=== PATIENT | female | born 1945 | race Caucasian/White ===

== ENCOUNTER → 2017-08-14 | Outpatient (CLI) | payer MEDICARE, OTHER ==
--- NOTE | 2017-08-14 14:33 | US ---
EXAMINATION TYPE: US abdomen complete DATE OF EXAM: 08/14/2017 COMPARISON: NONE CLINICAL HISTORY: Vomiting R11.10. V and D for 12 hours after eating a meal, h/o colon resection EXAM MEASUREMENTS: Liver Length: 15.1 cm Gallbladder Wall: 0.1 cm CBD: 0.4 cm Spleen: 9.9 cm Right Kidney: 9.4 x 3.6 x 4.0 cm Left Kidney: 9.0 x 3.6 x 3.9 cm Pancreas: not seen due to bowel gas Liver: wnl Gallbladder: wnl Evidence for sonographic Rivera's sign: no CBD: wnl Spleen: wnl Right Kidney: wnl Left Kidney: 1.4cm simple appearing cyst within mid pole Upper IVC: wnl Abd Aorta: overlying bowel gas limits imaging, otherwise appears wnl The liver is homogenous. The intrahepatic portion of the IVC and proximal abdominal aorta are within normal limits. There is no evidence of cholelithiasis. Common bile duct is unremarkable. The visu alized portions of the pancreas are homogenous. The spleen is unremarkable. Kidneys are symmetric a nd free of hydronephrosis. IMPRESSION: 1. No sonographic evidence of acute cholecystitis or cholelithiasis. 2. 1.4 cm simple left midpole renal cyst.
== END | disposition home or self-care (01) ==
LOC: RADUSWWP 13:48
PROVIDERS: ATTEND Internal Medicine
DX: N28.1 Cyst of kidney, acquired (principal); R11.10 Vomiting, unspecified
CPT/HCPCS: 76700

== ENCOUNTER → 2019-06-03 | Outpatient (CLI) | payer MEDICARE, OTHER ==
--- NOTE | 2019-06-03 15:00 | XR ---
EXAMINATION TYPE: XR chest 2V DATE OF EXAM: 06/03/2019 COMPARISON: Prior chest x-ray 07/26/2015 HISTORY: Cough TECHNIQUE: Frontal and lateral views of the chest are obtained. FINDINGS: There is no focal air space opacity, pleural effusion, or pneumothorax seen. The cardiac silhouette size is within normal limits. The osseous structures are intact. Prominent lung volumes with flattening of hemidiaphragms suggest underlying COPD. Anterior wedging of a vertebral body near the thoracolumbar junction, lumbar spine is a stable finding. Aorta is dense, there are vascular calc ifications in the super aortic branch vessel. Prominent epicardial fat pads noted. There is a spinal curvature. IMPRESSION: No acute cardiopulmonary process.
== END | disposition home or self-care (01) ==
LOC: RADXRMAIN 13:11
PROVIDERS: ATTEND Internal Medicine
DX: R05 Cough (principal)
CPT/HCPCS: 71046

== ENCOUNTER 2020-06-17 12:37 | Observation (INO) | payer MEDICARE, OTHER ==
--- NOTE | 2020-06-17 13:05 | ED ---
General Adult HPI - General Chief complaint: Shortness of Breath Stated complaint: Shortness of Breath Time Seen by Provider: 06/17/20 12:43 Source: patient Mode of arrival: wheelchair Limitations: no limitations - History of Present Illness Initial comments: Dictation was produced using View[employer] dictation software. please excuse any grammatical, word or spelling errors. This patient was cared for during a federal and state declared [facility] secondary to Covid 19 Chief Complaint: 75-year-old feel past medical history of COPD, hypertension, arthritis presents with dysphagia and productive cough History of Present Illness: 75-year-old female she states she's been having productive cough the week before things giving. She did see her primary care physician who prescribed her Augmentin. Patient states that antibiotics and really improve her symptoms. She was tested for coronavirus at that time was negative. Patient also brought to her primary care physician's attention that she is having trouble swallowing. Patient reports that she feels as though her piece. He ignored her symptoms. Patient has any fever, chills or night sweats. She does not feel faint. She states that her cough is productive of clear wh ite sputum. Patient does have history of COPD she does have a nebulizer. She states that her symptoms have been lingering prompt her to come to the emergency department. She decided to be evaluated. Patient denies any pain complaints. Denies any swelling in her legs. She denies that her symptoms are worse with lying flat. While in the emergency department she actually reports feeling better than while at home. The ROS documented in this emergency department record has been reviewed and confirmed by me. Those systems with pertinent positive or negative responses have been documented in the HPI. All other systems are other negative and/or noncontributory. PHYSICAL EXAM: General Impression: Alert and oriented x3, not in acute distress HEENT: Normocephalic atraumatic, extra-ocular movements intact, pupils equal and reactive to light bilaterally, mucous membranes moist. Cardiovascular: Heart regular rate and rhythm Chest: Able to complete full sentences, no retractions, no tachypnea, mild rales worse on the left than the right Abdomen: abdomen soft, non-tender, non-distended, no organomegaly Musculoskeletal: Pulses present and equal in all extremities, no peripheral edema Motor: no focal deficits noted Neurological: CN II-XII grossly intact, no focal motor or sensory deficits noted Skin: Intact with no visualized rashes Psych: Normal affect and mood ED course: 75-year-old female presents to the emergency department for productive cough, mild dyspnea and dysphagia. Vital signs upon arrival are within acceptable limits. EKG interpretation: Ventricular rate C2, normal sinus rhythm, ME interval 146, QRS 76, QTC 422. No ME prolongation, no QTC prolongation, no ST or T-wave changes noted. Overall, this EKG is unremarkable Laboratory evaluation obtained. CBC unremarkable. Coag panel is negative. Metabolic panel shows magnesium 1.5. Patient given oral magnesium. Rest of labs are unremarkable. Coronal virus test is negative. Chest x-ray shows focal opacity at the right lung base unchanged suggest a chronic process otherwise no acute processes. CT scans shows large right pericardial fat pad accounting for the density seen on the chest x-ray. No other processes noted. Patient tolerating fluids. She however was challenged with a sandwich. She is unable to tolerate solid food. Considering patient's severe dysphagia we'll have patient admitted with consultation to gastroenterology. will be admitted to [facility]. - Related Data Home Medications Medication Instructions Recorded Confirmed ALPRAZolam [Xanax] 0.25 mg PO TID PRN 07/27/14 06/17/20 Esomeprazole Magnesium [NexIUM] 40 mg PO DAILY 07/27/14 06/17/20 Furosemide [Lasix] 20 mg PO MOWEFR 07/27/14 06/17/20 Metoprolol Succinate [Toprol XL] 50 mg PO HS 07/27/14 06/17/20 Montelukast [Singulair] 10 mg PO HS 07/27/14 06/17/20 Nitroglycerin Sl Tabs [Nitrostat] 0.4 mg SUBLINGUAL ONCE PRN 07/27/14 06/17/20 Oxybutynin Xl [Ditropan XL] 5 mg PO DAILY 07/27/14 06/17/20 Simvastatin [Zocor] 40 mg PO HS 07/27/14 06/17/20 Acetaminophen [Tylenol] 500 mg PO Q4-6H PRN 06/17/20 06/17/20 Albuterol Inhaler [Ventolin Hfa 2 puff INHALATION RT-Q4H PRN 06/17/20 06/17/20 Inhaler] Albuterol Nebulized [Ventolin 2.5 mg INHALATION RT-DAILY 06/17/20 06/17/20 Nebulized] Arformoterol Tartrate [Brovana] 15 mcg INHALATION RT-BID 06/17/20 06/17/20 Ascorbic Acid [Vitamin C] 500 mg PO DAILY 06/17/20 06/17/20 Budesonide [Pulmicort] 0.25 mg INHALATION RT-BID 06/17/20 06/17/20 Cholecalciferol [Vitamin D3 (25 1,000 unit PO DAILY 06/17/20 06/17/20 Mcg = 1000 Iu)] Multivitamins, Thera [Multivitamin 1 tab PO DAILY 06/17/20 06/17/20 (formulary)] Allergies Allergy/AdvReac Type Severity Reaction Status Date / Time aspirin AdvReac Unknown Verified 06/17/20 13:40 codeine AdvReac Itching Verified 06/17/20 13:40 Sulfa (Sulfonamide AdvReac Itching Verified 06/17/20 13:40 Antibiotics) Review of Systems ROS Statement: Those systems with pertinent positive or pertinent negative responses have been documented in the HPI. ROS Other: All systems not noted in ROS Statement are negative. Past Medical History Past Medical History: Coronary Artery Disease (CAD), COPD, GERD/Reflux, Hyperlipidemia, Hypertension, Neurologic Disorder, Renal Disease, Rheumatoid Arthritis (RA) Additional Past Medical History / Comment(s): chronic cystitis;nerve damage r/t rosales. disc;diverticulitis; History of Any Multi-Drug Resistant Organisms: None Reported Past Surgical History: Bladder Surgery, Bowel Resection, Hysterectomy Additional Past Surgical History / Comment(s): colonoscopy Past Anesthesia/Blood Transfusion Reactions: No Reported Reaction Past Psychological History: Anxiety Past Alcohol Use History: Occasional Past Drug Use History: None Reported - Past Family History Brother(s) Family Medical History: Cancer General Exam Limitations: no limitations Course Vital Signs 06/17/20 06/17/20 12:47 14:40 Temperature 98.3 F Pulse Rate 69 64 Respiratory 18 18 Rate Blood Pressure 153/78 170/91 O2 Sat by Pulse 98 98 Oximetry Medical Decision Making - Lab Data Result diagrams: 06/17/20 13:06 06/17/20 13:06 Lab Results 06/17/20 06/17/20 06/17/20 Range/Units 13:06 13:06 13:06 WBC 9.1 (3.8-10.6) k/uL RBC 4.65 (3.80-5.40) m/uL Hgb 14.9 (11.4-16.0) gm/dL Hct 44.3 (34.0-46.0) % MCV 95.2 (80.0-100.0) fL MCH 32.1 (25.0-35.0) pg MCHC 33.7 (31.0-37.0) g/dL RDW 12.1 (11.5-15.5) % Plt Count 228 (150-450) k/uL MPV 7.3 Neutrophils % 63 % Lymphocytes % 29 % Monocytes % 5 % Eosinophils % 1 % Basophils % 0 % Neutrophils # 5.7 (1.3-7.7) k/uL Lymphocytes # 2.6 (1.0-4.8) k/uL Monocytes # 0.4 (0-1.0) k/uL Eosinophils # 0.1 (0-0.7) k/uL Basophils # 0.0 (0-0.2) k/uL PT 11.4 (9.0-12.0) sec INR 1.1 (<1.2) APTT 26.1 (22.0-30.0) sec Sodium 138 (137-145) mmol/L Potassium 4.5 (3.5-5.1) mmol/L Chloride 104 (98-107) mmol/L Carbon Dioxide 25 (22-30) mmol/L Anion Gap 9 mmol/L BUN 11 (7-17) mg/dL Creatinine 0.93 (0.52-1.04) mg/dL Est GFR (CKD-EPI)AfAm 71 (>60 ml/min/1.73 sqM) Est GFR (CKD-EPI)NonAf 61 (>60 ml/min/1.73 sqM) Glucose 104 H (74-99) mg/dL Plasma Lactic Acid Kyle (0.7-2.0) mmol/L Calcium 9.0 (8.4-10.2) mg/dL Magnesium 1.5 L (1.6-2.3) mg/dL Total Bilirubin 0.6 (0.2-1.3) mg/dL AST 23 (14-36) U/L ALT 17 (4-34) U/L Alkaline Phosphatase 69 (38-126) U/L Troponin I (0.000-0.034) ng/mL NT-Pro-B Natriuret Pep pg/mL Total Protein 6.7 (6.3-8.2) g/dL Albumin 4.3 (3.5-5.0) g/dL Coronavirus (PCR) (Not Detectd) 06/17/20 06/17/20 06/17/20 Range/Units 13:06 13:06 13:06 WBC (3.8-10.6) k/uL RBC (3.80-5.40) m/uL Hgb (11.4-16.0) gm/dL Hct (34.0-46.0) % MCV (80.0-100.0) fL MCH (25.0-35.0) pg MCHC (31.0-37.0) g/dL RDW (11.5-15.5) % Plt Count (150-450) k/uL MPV Neutrophils % % Lymphocytes % % Monocytes % % Eosinophils % % Basophils % % Neutrophils # (1.3-7.7) k/uL Lymphocytes # (1.0-4.8) k/uL Monocytes # (0-1.0) k/uL Eosinophils # (0-0.7) k/uL Basophils # (0-0.2) k/uL PT (9.0-12.0) sec INR (<1.2) APTT (22.0-30.0) sec Sodium (137-145) mmol/L Potassium (3.5-5.1) mmol/L Chloride (98-107) mmol/L Carbon Dioxide (22-30) mmol/L Anion Gap mmol/L BUN (7-17) mg/dL Creatinine (0.52-1.04) mg/dL Est GFR (CKD-EPI)AfAm (>60 ml/min/1.73 sqM) Est GFR (CKD-EPI)NonAf (>60 ml/min/1.73 sqM) Glucose (74-99) mg/dL Plasma Lactic Acid Kyle 2.0 (0.7-2.0) mmol/L Calcium (8.4-10.2) mg/dL Magnesium (1.6-2.3) mg/dL Total Bilirubin (0.2-1.3) mg/dL AST (14-36) U/L ALT (4-34) U/L Alkaline Phosphatase (38-126) U/L Troponin I <0.012 (0.000-0.034) ng/mL NT-Pro-B Natriuret Pep 406 pg/mL Total Protein (6.3-8.2) g/dL Albumin (3.5-5.0) g/dL Coronavirus (PCR) (Not Detectd) 06/17/20 Range/Units 13:06 WBC (3.8-10.6) k/uL RBC (3.80-5.40) m/uL Hgb (11.4-16.0) gm/dL Hct (34.0-46.0) % MCV (80.0-100.0) fL MCH (25.0-35.0) pg MCHC (31.0-37.0) g/dL RDW (11.5-15.5) % Plt Count (150-450) k/uL MPV Neutrophils % % Lymphocytes % % Monocytes % % Eosinophils % % Basophils % % Neutrophils # (1.3-7.7) k/uL Lymphocytes # (1.0-4.8) k/uL Monocytes # (0-1.0) k/uL Eosinophils # (0-0.7) k/uL Basophils # (0-0.2) k/uL PT (9.0-12.0) sec INR (<1.2) APTT (22.0-30.0) sec Sodium (137-145) mmol/L Potassium (3.5-5.1) mmol/L Chloride (98-107) mmol/L Carbon Dioxide (22-30) mmol/L Anion Gap mmol/L BUN (7-17) mg/dL Creatinine (0.52-1.04) mg/dL Est GFR (CKD-EPI)AfAm (>60 ml/min/1.73 sqM) Est GFR (CKD-EPI)NonAf (>60 ml/min/1.73 sqM) Glucose (74-99) mg/dL Plasma Lactic Acid Kyle (0.7-2.0) mmol/L Calcium (8.4-10.2) mg/dL Magnesium (1.6-2.3) mg/dL Total Bilirubin (0.2-1.3) mg/dL AST (14-36) U/L ALT (4-34) U/L Alkaline Phosphatase (38-126) U/L Troponin I (0.000-0.034) ng/mL NT-Pro-B Natriuret Pep pg/mL Total Protein (6.3-8.2) g/dL Albumin (3.5-5.0) g/dL Coronavirus (PCR) Not Detected (Not Detectd) Disposition Clinical Impression: Dysphagia Disposition: ADMITTED IP TO THIS HOSP Condition: Fair Referrals: Alexx Gutiérrez MD [Primary Care Provider] - 1-2 days Decision Time: 15:05
[2020-06-17 13:18] LABS: Basophils % (A) 0 %; Eosinophils # (A) 0.1 k/uL (0-0.7); Eosinophils % (A) 1 %; HCT 44.3 % (34.0-46.0); HGB 14.9 gm/dL (11.4-16.0); Lymphocytes # (A) 2.6 k/uL (1.0-4.8); Lymphocytes % (A) 29 %; MCH 32.1 pg (25.0-35.0); MCHC 33.7 g/dL (31.0-37.0); MCV 95.2 fL (80.0-100.0); Mean Platelet Volume 7.3; Monocytes # (A) 0.4 k/uL (0-1.0); Monocytes % (A) 5 %; Neutrophils # (A) 5.7 k/uL (1.3-7.7); Neutrophils % (A) 63 %; Platelet Count 228 k/uL (150-450); RBC 4.65 m/uL (3.80-5.40); RDW 12.1 % (11.5-15.5); WBC 9.1 k/uL (3.8-10.6)
[2020-06-17 13:28] LABS: Albumin 4.3 g/dL (3.5-5.0); INR 1.1 (<1.2); Magnesium 1.5 mg/dL (1.6-2.3); Partial Thromboplastin Time 26.1 sec (22.0-30.0); Potassium 4.5 mmol/L (3.5-5.1); Prothrombin Time 11.4 sec (9.0-12.0); Total Bilirubin 0.6 mg/dL (0.2-1.3); Total Protein 6.7 g/dL (6.3-8.2)
--- NOTE | 2020-06-17 13:29 | XR ---
EXAMINATION TYPE: XR chest 2V DATE OF EXAM: 06/17/2020 COMPARISON: 06/03/2019 HISTORY: 75-year-old female with cough TECHNIQUE: PA and lateral views FINDINGS: The cardiomediastinal silhouette, aorta, and pulmonary vasculature are within normal limits. Stable f ocal opacity along the right cardiophrenic angle. This appears unchanged from the patient's study las t year. Mild hyperinflation. No consolidation or pleural effusion otherwise seen. Stable mild anterio r wedging at the thoracolumbar junction. IMPRESSION: 1. Focal opacity at the medial right base is unchanged suggesting a chronic process such as underlyin g Morgagni, pericardiac cyst, or large epicardial fat pad. Nonemergent follow-up contrast enhanced CT recommended to clarify the etiology of this finding. 2. Otherwise, no acute change is seen.
[2020-06-17] MEDS ORDERED: MAGNESIUM OXIDE 400 MG TAB PO STA (13:53)
[2020-06-17] MEDS ORDERED: RX INFO: IV CONTRAST WAS GIVEN 1 EACH MISC MISCELLANE PRN (13:55)
--- NOTE | 2020-06-17 14:50 | CT ---
EXAMINATION TYPE: CT chest w con DATE OF EXAM: 06/17/2020 COMPARISON: Today HISTORY: Right lung mass. CT DLP: 372.1 mGycm Automated exposure control for dose reduction was used. CONTRAST: Performed with IV Contrast, patient injected with 100 mL of Isovue 300. Images were obtained from the thoracic inlet to the diaphragm with IV contrast. There is diffuse pulmonary emphysema. Thoracic aorta shows mild atheromatous change. Ascending aorta measures 3.7 cm. There is no dissection. There is no mediastinal adenopathy. There are no hilar noni s. There is no pleural effusion. There is hiatal hernia. There is prominent right pericardial fat pad. The thoracic spine is intact. There is no compression fracture. There is L2 20% anterior wedging ther e is probably an old fracture. IMPRESSION: Large right pericardial fat pad that accounts for increased density on the chest x-ray today. Hiatal hernia. Emphysema. No evidence of acute lung disease.
[2020-06-17] MEDS ORDERED: NALOXONE 0.4 MG/ML 1 ML VIAL IV PRN (15:03)
[2020-06-17] MEDS: SODIUM CHLORIDE 0.9% 1,000 ML IV SCH (15:51)
[2020-06-17] MEDS ORDERED: ACETAMINOPHEN TAB 500 MG TAB PO PRN (20:23)
[2020-06-17] MEDS ORDERED: ALPRAZolam 0.25 MG TAB PO PRN (20:23)
[2020-06-17] MEDS ORDERED: ALBUTEROL NEBULIZED 2.5 MG/3 ML INHALATION PRN (20:23)
[2020-06-17] MEDS ORDERED: NITROGLYCERIN SL TABS 0.4 MG TAB SUBLINGUAL PRN (20:23)
[2020-06-17] MEDS: MONTELUKAST 10 MG TAB PO SCH (21:03)
[2020-06-17] MEDS: ATORVASTATIN 20 MG TAB PO SCH (21:03)
[2020-06-18] MEDS: METOPROLOL SUCCINATE (ER) 50 MG TAB.ER.24H PO SCH ×2 (02:54→21:34)
[2020-06-18] MEDS: SODIUM CHLORIDE 0.9% 1,000 ML IV SCH ×2 (06:38→21:35)
[2020-06-18] MEDS: BUDESONIDE 0.25 MG/2 ML NEBU INHALATION SCH ×2 (07:22→19:18)
[2020-06-18] MEDS: FORMOTEROL FUMARATE 20 MCG/2 ML NEBU INHALATION SCH ×2 (07:22→19:18)
[2020-06-18] MEDS: ALBUTEROL NEBULIZED 2.5 MG/3 ML INHALATION SCH (07:22)
--- NOTE | 2020-06-18 08:08 | P.HPIM ---
History of Present Illness This is a pleasant 75 years old female with past medical history of coronary artery disease, COPD, GERD, hypertension, hyperlipidemia, rheumatoid arthritis. She is a patient of Dr. Gutiérrez. She presents because of difficulty swallowing especially for solid food rather than liquids since earlier this month and is about 3-4 weeks, also she had some sore throat, nasal congestion and sinusitis she went to her PCP who prescribed her antibiotic and she felt better however she kept having difficulty swallowing but her PCP did not help her much as per patient so she got some respiratory difficulty and stridor so she decided to come to the hospital. Also she feels choking with food and vomiting stuff. No lump in her neck Currently she is fully awake and oriented, she breathing quietly, no respiratory difficulty, no stridor, no wheezing, no tachypnea. However she still complaining of from dysphagia that's why she got admitted by emergency room physician to be evaluated by GI team. Also denies other symptoms, no abdominal pain or diarrhea. No chest pain or dyspnea. No fever Labs showing bradycardia with heart rate 50-58. Blood pressure 162/71, patient is afebrile. And she saturating 98% on room air Labs including CBC, INR, BMP and liver enzymes are unremarkable. Troponin is negative. Less than 0.012. Magnesium is low at 1.5. And almonte virus was not detected Chest x-ray showing no acute process. Staple focal opacity along the right cardiophrenic angle. CT of the chest is recommended by radiologist CT of the chest with contrast showing large right pericardial fat pad that accounts for increased density on the chest x-ray today. Hiatal hernia. Emphysema. No evidence of acute lung disease. EKG showed normal sinus rhythm. At 62 beats per minute Emergency room patient was kept on clear liquid diet and admitted, with consult for GI team Review of Systems CONSTITUTIONAL: No fever, no malaise, no fatigue. HEENT: No recent visual problems or hearing problems. Denied any sore throat. CARDIOVASCULAR: No orthopnea, PND, no palpitations, no syncope. PULMONARY: No shortness of breath, no cough, no hemoptysis. GASTROINTESTINAL: No diarrhea, no nausea, no abdominal pain. Normoactive bowel sounds. NEUROLOGICAL: No headaches, no weakness, no numbness. HEMATOLOGICAL: Denies any bleeding or petechiae. GENITOURINARY: Denies any burning micturition, frequency, or urgency. MUSCULOSKELETAL/RHEUMATOLOGICAL: Denies any joint pain, swelling, or any muscle pain. ENDOCRINE: Denies any polyuria or polydipsia. this is a pleasant 75 yo F with past medical history of COPD ,GERD, coronary artery disease, hypertension, hyperlipidemia, rheumatoid arthritis, anxiety. She is patient of Dr. Gutiérrez. Past Medical History Past Medical History: Coronary Artery Disease (CAD), COPD, GERD/Reflux, Hyperlipidemia, Hypertension, Neurologic Disorder, Renal Disease, Rheumatoid Arthritis (RA) Additional Past Medical History / Comment(s): chronic cystitis;nerve damage r/t rosales. disc;diverticulitis; History of Any Multi-Drug Resistant Organisms: None Reported Past Surgical History: Bladder Surgery, Bowel Resection, Hysterectomy Additional Past Surgical History / Comment(s): colonoscopy, breast biopsy x2 benign, Past Anesthesia/Blood Transfusion Reactions: No Reported Reaction Past Psychological History: Anxiety Smoking Status: Former smoker Past Alcohol Use History: Occasional Additional Past Alcohol Use History / Comment(s): former drinker Past Drug Use History: None Reported - Past Family History Brother(s) Family Medical History: Cancer Medications and Allergies Home Medications Medication Instructions Recorded Confirmed Type ALPRAZolam [Xanax] 0.25 mg PO TID PRN 07/27/14 06/17/20 History Esomeprazole Magnesium [NexIUM] 40 mg PO DAILY 07/27/14 06/17/20 History Furosemide [Lasix] 20 mg PO MOWEFR 07/27/14 06/17/20 History Metoprolol Succinate [Toprol XL] 50 mg PO HS 07/27/14 06/17/20 History Montelukast [Singulair] 10 mg PO HS 07/27/14 06/17/20 History Nitroglycerin Sl Tabs [Nitrostat] 0.4 mg SUBLINGUAL ONCE PRN 07/27/14 06/17/20 History Oxybutynin Xl [Ditropan XL] 5 mg PO DAILY 07/27/14 06/17/20 History Simvastatin [Zocor] 40 mg PO HS 07/27/14 06/17/20 History Acetaminophen [Tylenol] 500 mg PO Q4-6H PRN 06/17/20 06/17/20 History Albuterol Inhaler [Ventolin Hfa 2 puff INHALATION RT-Q4H PRN 06/17/20 06/17/20 History Inhaler] Albuterol Nebulized [Ventolin 2.5 mg INHALATION RT-DAILY 06/17/20 06/17/20 History Nebulized] Arformoterol Tartrate [Brovana] 15 mcg INHALATION RT-BID 06/17/20 06/17/20 History Ascorbic Acid [Vitamin C] 500 mg PO DAILY 06/17/20 06/17/20 History Budesonide [Pulmicort] 0.25 mg INHALATION RT-BID 06/17/20 06/17/20 History Cholecalciferol [Vitamin D3 (25 1,000 unit PO DAILY 06/17/20 06/17/20 History Mcg = 1000 Iu)] Multivitamins, Thera [Multivitamin 1 tab PO DAILY 06/17/20 06/17/20 History (formulary)] Allergies Allergy/AdvReac Type Severity Reaction Status Date / Time aspirin AdvReac Unknown Verified 06/17/20 13:40 codeine AdvReac Itching Verified 06/17/20 13:40 Sulfa (Sulfonamide AdvReac Itching Verified 06/17/20 13:40 Antibiotics) Physical Exam Vitals: Vital Signs Temp Pulse Pulse Resp BP BP Pulse Ox 06/18/20 02:54 97.8 F 50 L 19 162/71 96 06/18/20 02:53 50 L 19 06/17/20 21:00 97.9 F 53 L 17 154/81 98 06/17/20 17:33 58 L 20 192/70 98 06/17/20 17:15 98.3 F 65 18 127/104 98 06/17/20 15:40 58 L 19 163/70 97 06/17/20 14:40 64 18 170/91 98 06/17/20 12:47 98.3 F 69 18 153/78 98 Intake and Output 06/17/20 06/18/20 06/18/20 22:59 06:59 14:59 Intake Total 120 240 Balance 120 240 Intake: Oral 120 240 Other: Voiding Method Toilet Toilet # Voids 1 2 Weight 68.946 kg GENERAL: The patient is alert and oriented x3, not in any acute distress. Well developed, well nourished. HEENT: Pupils are round and equally reacting to light. EOMI. No scleral icterus. No conjunctival pallor. Normocephalic, atraumatic. No pharyngeal erythema. No thyromegaly. CARDIOVASCULAR: S1 and S2 present. No murmurs, rubs, or gallops. PULMONARY: Chest is clear to auscultation, no wheezing or crackles. ABDOMEN: Soft, nontender, nondistended, normoactive bowel sounds. No palpable organomegaly. MUSCULOSKELETAL: No joint swelling or deformity. EXTREMITIES: No cyanosis, clubbing, or pedal edema. NEUROLOGICAL: Gross neurological examination did not reveal any focal deficits. SKIN: No rashes. No petechiae Results CBC & Chem 7: 06/17/20 13:06 06/17/20 13:06 Labs: Abnormal Lab Results - Last 24 Hours (Table) 06/17/20 Range/Units 13:06 Glucose 104 H (74-99) mg/dL Magnesium 1.5 L (1.6-2.3) mg/dL Thrombosis Risk Factor Assmnt - Choose All That Apply Any of the Below Risk Factors Present?: Yes Each Factor Represents 1 point: Abnormal pulmonary function (COPD), Obesity (BMI >25) Other Risk Factors: Yes Each Risk Factor Represents 2 Points: Age 61-74 years Other congenital or acquired thrombophilia - If yes, enter type in comment: No Thrombosis Risk Factor Assessment Total Risk Factor Score: 4 Thrombosis Risk Factor Assessment Level: Moderate Risk Assessment and Plan Assessment: Acute Dysphagia Essential hypertension Hyperlipidemia Rheumatoid arthritis History of coronary artery disease History of GERD History of COPD Plan: This is a pleasant 75 years old female who presents with dysphagia. Patient is currently on liquid diet. We will follow up the recommendation of GI team for possible endoscopy Labs and medication were reviewed.. Continue same treatment. Continue with symptomatic treatment. Resume home medication. Monitor lytes and vitals. DVT and GI prophylaxis. Further recommendations depends on the clinical course of the patient DVT prophylaxis: Subcutaneous heparin GI Prophylaxis: Ppi
[2020-06-18] MEDS: ASCORBIC ACID 500 MG TAB PO SCH (09:41)
[2020-06-18] MEDS: FUROSEMIDE 20 MG TAB PO SCH (09:41)
[2020-06-18] MEDS: PANTOPRAZOLE 40 MG TABLET PO SCH (09:41)
[2020-06-18] MEDS: OXYBUTYNIN XL 5 MG TAB.ER.24 PO SCH (09:41)
[2020-06-18] MEDS: CHOLECALCIFEROL 1,000 UNIT TAB PO SCH (09:41)
[2020-06-18] MEDS: MULTIVITAMINS, THERA 1 EACH TAB PO SCH (09:41)
[2020-06-18] MEDS: HEPARIN SODIUM,PORCINE 5,000 UNIT/ML 1 ML VIAL SQ SCH ×2 (09:42→21:34)
--- NOTE | 2020-06-18 15:45 | P.CONS ---
History of Present Illness - Reason for Consult Consult date: 06/18/20 Dysphagia Requesting physician: Toby E Sheet - Chief Complaint Difficulty swallowing - History of Present Illness 75-year-old female with a medical history significant for rheumatoid arthritis, hyperlipidemia, hypertension, GERD, COPD and coronary artery disease who pres ented to the hospital for complaints of difficulty swallowing. The patient feels that her symptoms started with a sore throat for which she reports she was treated with antibiotic therapy. She feels that it may also be related to an infection which she contracted from her nebulizer. She reports that initially difficulty swallowing was predominantly to solids however this continued to progress and she had difficulty swallowing liquids as well. Currently the patient is feeling that she is somewhat improved and she is better able to tolerate diet. She also reports issues with coughing and production of white phlegm. Laboratory evaluation significant for involvement 14.9, WBC 9.1, platelet count 220,000, total bilirubin 0.6, alkaline phosphatase 69, AST 23 and ALT 17. She believes that her last EGD and colonoscopy were approximately 2016 2017 and that she was told of a hiatal hernia at that time. She also reports that previously she underwent partial colonic resection for diverticula. CT of the chest showed emphysematous changes with no acute lung process and a hiatal hernia. Review of Systems REVIEW OF SYSTEMS: CONSTITUTIONAL: Denies any fevers, chills, weight change or fatigue. CARDIOVASCULAR: Denies any chest pain, palpitations high or low blood pressures RESPIRATORY: Denies any shortness of breath, but she does report a cough with production of white phlegm. GENITOURINARY: No dysuria or hematuria. MUSCULOSKELETAL: No weakness reported. SKIN: Denies any new rashes or lesions, jaundice or pallor. PSYCHIATRIC: Denies any depression or anxiety. NEUROLOGY: Denies headache, denies any new focal deficits. EARS/NOSE/THROAT: No recent hearing change, congestion, nasal discharge or sore throat. EYES: No pain in eyes, discharge or change in vision. GASTROINTESTINAL: As per HPI. Past Medical History Past Medical History: Coronary Artery Disease (CAD), COPD, GERD/Reflux, Hyperlipidemia, Hypertension, Neurologic Disorder, Renal Disease, Rheumatoid Arthritis (RA) Additional Past Medical History / Comment(s): chronic cystitis;nerve damage r/t rosales. disc;diverticulitis; History of Any Multi-Drug Resistant Organisms: None Reported Past Surgical History: Bladder Surgery, Bowel Resection, Hysterectomy Additional Past Surgical History / Comment(s): colonoscopy, breast biopsy x2 benign, Past Anesthesia/Blood Transfusion Reactions: No Reported Reaction Past Psychological History: Anxiety Smoking Status: Former smoker Past Alcohol Use History: Occasional Additional Past Alcohol Use History / Comment(s): former drinker Past Drug Use History: None Reported - Past Family History Brother(s) Family Medical History: Cancer Medications and Allergies Home Medications Medication Instructions Recorded Confirmed Type ALPRAZolam [Xanax] 0.25 mg PO TID PRN 07/27/14 06/17/20 History Esomeprazole Magnesium [NexIUM] 40 mg PO DAILY 07/27/14 06/17/20 History Furosemide [Lasix] 20 mg PO MOWEFR 07/27/14 06/17/20 History Metoprolol Succinate [Toprol XL] 50 mg PO HS 07/27/14 06/17/20 History Montelukast [Singulair] 10 mg PO HS 07/27/14 06/17/20 History Nitroglycerin Sl Tabs [Nitrostat] 0.4 mg SUBLINGUAL ONCE PRN 07/27/14 06/17/20 History Oxybutynin Xl [Ditropan XL] 5 mg PO DAILY 07/27/14 06/17/20 History Simvastatin [Zocor] 40 mg PO HS 07/27/14 06/17/20 History Acetaminophen [Tylenol] 500 mg PO Q4-6H PRN 06/17/20 06/17/20 History Albuterol Inhaler [Ventolin Hfa 2 puff INHALATION RT-Q4H PRN 06/17/20 06/17/20 History Inhaler] Albuterol Nebulized [Ventolin 2.5 mg INHALATION RT-DAILY 06/17/20 06/17/20 History Nebulized] Arformoterol Tartrate [Brovana] 15 mcg INHALATION RT-BID 06/17/20 06/17/20 History Ascorbic Acid [Vitamin C] 500 mg PO DAILY 06/17/20 06/17/20 History Budesonide [Pulmicort] 0.25 mg INHALATION RT-BID 06/17/20 06/17/20 History Cholecalciferol [Vitamin D3 (25 1,000 unit PO DAILY 06/17/20 06/17/20 History Mcg = 1000 Iu)] Multivitamins, Thera [Multivitamin 1 tab PO DAILY 06/17/20 06/17/20 History (formulary)] Allergies Allergy/AdvReac Type Severity Reaction Status Date / Time aspirin AdvReac Unknown Verified 06/17/20 13:40 codeine AdvReac Itching Verified 06/17/20 13:40 Sulfa (Sulfonamide AdvReac Itching Verified 06/17/20 13:40 Antibiotics) Physical Exam Vitals: Vital Signs Temp Pulse Pulse Resp BP BP Pulse Ox 06/18/20 09:39 97.9 F 66 16 152/74 94 L 06/18/20 09:00 66 16 06/18/20 07:37 58 L 06/18/20 07:28 95 06/18/20 07:27 54 L 06/18/20 02:54 97.8 F 50 L 19 162/71 96 06/18/20 02:53 50 L 19 06/17/20 21:00 97.9 F 53 L 17 154/81 98 06/17/20 17:33 58 L 20 192/70 98 06/17/20 17:15 98.3 F 65 18 127/104 98 06/17/20 15:40 58 L 19 163/70 97 06/17/20 14:40 64 18 170/91 98 06/17/20 12:47 98.3 F 69 18 153/78 98 Intake and Output 06/17/20 06/18/20 06/18/20 22:59 06:59 14:59 Intake Total 120 240 300 Balance 120 240 300 Intake: Oral 120 240 300 Other: Voiding Method Toilet Toilet Toilet # Voids 1 2 1 Weight 68.946 kg On physical examination, patient appears comfortable in no apparent distress. HEAD: Normocephalic, atraumatic. EYES: No scleral icterus. No conjunctival injection. MOUTH: No lesions, tongue midline. NECK: Trachea midline, no gross abnormalities. CHEST: Decreased air entry in all lung lam. HEART: Regular rate and rhythm. ABDOMEN: Soft, nontender to palpation. Bowel sounds are positive. No organomegaly. No guarding or rigidity. EXTREMITIES: No pedal edema. SKIN: No rashes, no jaundice. NEUROLOGIC: Alert and oriented x3. No focal deficits. Results CBC & Chem 7: 06/17/20 13:06 06/17/20 13:06 Labs: Abnormal Lab Results - Last 24 Hours (Table) 06/17/20 Range/Units 13:06 Glucose 104 H (74-99) mg/dL Magnesium 1.5 L (1.6-2.3) mg/dL CT scan - chest: report reviewed (CT of the chest showed emphysematous changes with no acute lung process and a hiatal hernia.) Assessment and Plan (1) Dysphagia Narrative/Plan: 75-year-old female with multiple medical comorbidities including GERD and hiatal hernia who presents to the hospital due to difficulty swallowing. She reports difficulty swallowing solids over the past few months which has progressed difficulty swallowing liquids. Currently however she is seeing the symptoms are improved. She states she previously underwent endoscopic evaluation in approximately 2017 or 2018 with EGD and colonoscopy significant for hiatal hernia and diverticulosis. Unclear etiology, may be related to uncontrolled reflux, Schatzki's ring, esophageal dysmotility or other etiology. Current Visit: Yes Status: Acute Code(s): R13.10 - DYSPHAGIA, UNSPECIFIED SNOMED Code(s): 48340727 (2) GERD (gastroesophageal reflux disease) Current Visit: Yes Status: Acute Code(s): K21.9 - GASTRO-ESOPHAGEAL REFLUX DISEASE WITHOUT ESOPHAGITIS SNOMED Code(s): 717772314 (3) Hiatal hernia Current Visit: Yes Status: Acute Code(s): K44.9 - DIAPHRAGMATIC HERNIA WITHOUT OBSTRUCTION OR GANGRENE SNOMED Code(s): 99004103 Plan: Supportive care Okay for diet as tolerated Continue Protonix therapy Continue to monitor CBC, BMP, LFTs Nothing by mouth after midnight EGD plan for the morning, with extensive discussion and explaining the risks, benefits and possible complications of the procedure with all the patient's questions answered to her satisfaction Thank you for allowing us to participate in the care of the patient
[2020-06-18] MEDS: ATORVASTATIN 20 MG TAB PO SCH (21:34)
[2020-06-18] MEDS: MONTELUKAST 10 MG TAB PO SCH (21:35)
[2020-06-19] MEDS: BUDESONIDE 0.25 MG/2 ML NEBU INHALATION SCH ×2 (07:21→19:11)
[2020-06-19] MEDS: ALBUTEROL NEBULIZED 2.5 MG/3 ML INHALATION SCH (07:21)
[2020-06-19] MEDS: FORMOTEROL FUMARATE 20 MCG/2 ML NEBU INHALATION SCH ×2 (07:21→19:11)
[2020-06-19] MEDS ORDERED: PROPOFOL 10 MG/ML 20 ML VIAL IV ONE (11:32)
[2020-06-19] MEDS ORDERED: LACTATED RINGERS 1,000 ML IV ONE (11:32)
[2020-06-19] MEDS ORDERED: LIDOCAINE 1% INJ 10MG/ML (20 ML MDV) ONE (11:32)
[2020-06-19] MEDS: ASCORBIC ACID 500 MG TAB PO SCH (12:08)
[2020-06-19] MEDS: PANTOPRAZOLE 40 MG TABLET PO SCH ×2 (12:08→17:37)
[2020-06-19] MEDS: CHOLECALCIFEROL 1,000 UNIT TAB PO SCH (12:08)
[2020-06-19] MEDS: OXYBUTYNIN XL 5 MG TAB.ER.24 PO SCH (12:08)
[2020-06-19] MEDS: HEPARIN SODIUM,PORCINE 5,000 UNIT/ML 1 ML VIAL SQ SCH ×2 (12:08→20:22)
[2020-06-19] MEDS: MULTIVITAMINS, THERA 1 EACH TAB PO SCH (12:08)
--- NOTE | 2020-06-19 12:14 | P.PCN ---
Date of Procedure: 06/19/20 Description of Procedure: BRIEF HISTORY: 75-year-old female with a medical history significant for rheumatoid arthritis, hyperlipidemia, hypertension, GERD, COPD and coronary artery disease who presented to the hospital for complaints of difficulty swallowing. The patient feels that her symptoms started with a sore throat for which she reports she was treated with antibiotic therapy. She feels that it may also be related to an infection which she contracted from her nebulizer. She reports that initially difficulty swallowing was predominantly to solids however this continued to progress and she had difficulty swallowing liquids as well. Currently the patient is feeling that she is somewhat improved and she is better able to tolerate diet. She also reports issues with coughing and production of white phlegm. Laboratory evaluation significant for involvement 14.9, WBC 9.1, platelet count 220,000, total bilirubin 0.6, alkaline phosphatase 69, AST 23 and ALT 17. She believes that her last EGD and colonoscopy were approximately 2016 2017 and that she was told of a hiatal hernia at that time. She also reports that previously she underwent partial colonic resection for diverticula. CT of the chest showed emphysematous changes with no acute lung process and a hiatal hernia. PROCEDURE PERFORMED: Esophagogastroduodenoscopy with biopsy and [id number] balloon dilation of the esophagus. PREOPERATIVE DIAGNOSIS: Esophageal dysphagia, GERD. ESTIMATED BLOOD LOSS: Minimal. IV sedation per anesthesia. PROCEDURE: After informed consent was obtained, the patient was brought into the endoscopy unit. IV sedation was administered by Anesthesia under continuous monitoring. Initially the Olympus GIF-190 video endoscope was inserted into the mouth. Esophagus intubated without any difficulty. It was gradually advanced into the stomach and duodenum and carefully examined. The bulb and the second part of the duodenum appeared normal, with biopsies taken. The scope at this time was withdrawn to the stomach, adequately insufflated with air, and upon careful examination, mucosa of the antrum, body, cardia and the fundus appeared normal, except for some mild scattered erythema of the antrum and body suggestive of mild gastritis with biopsies taken. The scope was then withdrawn into the esophagus. The GE junction was located at 33 cm from the incisors, with some mild inflammation suggestive of LA grade a distal esophagitis with biopsies of lower esophagus taken. There is also a widely patent and nonobstructing distal Schatzki's ring, however given patient's symptoms of esophageal dysphagia this was stretched with a [id number] balloon dilator up to 15 mm16.5 mm18 mm. A large 5 cm hiatal hernia was also noted. The esophagus appeared normal. There were no erosions or ulcerations seen and the patient tolerated the procedure well. IMPRESSION: 1. LA grade a distal esophagitis. 2. Large hiatal hernia. 3. Schatzki's ring/esophageal stricture treated with [id number] balloon dilation. 4. Biopsies of the duodenum, antrum and body and GE junction. 5. Mild gastritis. RECOMMENDATIONS: The findings of this examination were discussed with the patient. Okay for diet. Patient instructed to increase home PPI therapy to twice daily for the next 8 weeks she could then titrate back down to daily Nexium therapy. Await pathology from biopsies. Okay for discharge from GI was otherwise medically stable. The gastroenterology service will stand by, please call back with any questions or concerns.
[2020-06-19] MEDS: SODIUM CHLORIDE 0.9% 1,000 ML IV SCH (13:36)
[2020-06-19] MEDS ORDERED: CALCIUM CARBONATE 500 MG CHEWABLE PO PRN (16:13)
[2020-06-19] MEDS: MONTELUKAST 10 MG TAB PO SCH (20:22)
[2020-06-19] MEDS: METOPROLOL SUCCINATE (ER) 50 MG TAB.ER.24H PO SCH (20:22)
[2020-06-19] MEDS: ATORVASTATIN 20 MG TAB PO SCH (20:22)
[2020-06-20] MEDS: SODIUM CHLORIDE 0.9% 1,000 ML IV SCH (02:36)
[2020-06-20] MEDS: PANTOPRAZOLE 40 MG TABLET PO SCH (06:06)
[2020-06-20] MEDS: BUDESONIDE 0.25 MG/2 ML NEBU INHALATION SCH (08:03)
[2020-06-20] MEDS: FORMOTEROL FUMARATE 20 MCG/2 ML NEBU INHALATION SCH (08:03)
[2020-06-20] MEDS: ALBUTEROL NEBULIZED 2.5 MG/3 ML INHALATION SCH (08:03)
[2020-06-20] MEDS: ASCORBIC ACID 500 MG TAB PO SCH (09:40)
[2020-06-20] MEDS: OXYBUTYNIN XL 5 MG TAB.ER.24 PO SCH (09:40)
[2020-06-20] MEDS: CHOLECALCIFEROL 1,000 UNIT TAB PO SCH (09:40)
[2020-06-20] MEDS: MULTIVITAMINS, THERA 1 EACH TAB PO SCH (09:40)
[2020-06-20] MEDS: HEPARIN SODIUM,PORCINE 5,000 UNIT/ML 1 ML VIAL SQ SCH (09:40)
[2020-06-20] MEDS: FUROSEMIDE 20 MG TAB PO SCH (09:42)
[2020-06-20 09:52] VITALS: BP 162/74; PULSE 69; RESP 18; TEMP 97.6
== END 2020-06-20 13:24 ==
LOC: EC 12:37 → 1SOBS 15:03
PROVIDERS: ADMIT Internal Medicine; ATTEND Internal Medicine
DX: K22.2 Esophageal obstruction (principal); K21.00 Gastro-esophageal reflux disease with esophagitis, without bleeding; K29.70 Gastritis, unspecified, without bleeding; K44.9 Diaphragmatic hernia without obstruction or gangrene; J43.9 Emphysema, unspecified; I10 Essential (primary) hypertension; E78.5 Hyperlipidemia, unspecified; M06.9 Rheumatoid arthritis, unspecified; I25.10 Atherosclerotic heart disease of native coronary artery without angina pectoris; M19.90 Unspecified osteoarthritis, unspecified site; R91.8 Other nonspecific abnormal finding of lung field; R93.1 Abnormal findings on diagnostic imaging of heart and coronary circulation; N30.20 Other chronic cystitis without hematuria; M51.9 Unspecified thoracic, thoracolumbar and lumbosacral intervertebral disc disorder; K57.90 Diverticulosis of intestine, part unspecified, without perforation or abscess without bleeding; F41.9 Anxiety disorder, unspecified; E66.9 Obesity, unspecified; Z20.828 Contact with and (suspected) exposure to other viral communicable diseases; Z79.899 Other long term (current) drug therapy; Z79.51 Long term (current) use of inhaled steroids; Z88.6 Allergy status to analgesic agent; Z88.5 Allergy status to narcotic agent; Z88.2 Allergy status to sulfonamides; Z86.69 Personal history of other diseases of the nervous system and sense organs; Z98.890 Other specified postprocedural states; Z90.49 Acquired absence of other specified parts of digestive tract; Z90.710 Acquired absence of both cervix and uterus; Z87.09 Personal history of other diseases of the respiratory system; Z87.891 Personal history of nicotine dependence; Z68.30 Body mass index [BMI] 30.0-30.9, adult; Z87.19 Personal history of other diseases of the digestive system; Z80.9 Family history of malignant neoplasm, unspecified
CPT/HCPCS: 96372; 99285; 36415; 94640 ×6; 94760; 93005; 92610; 88305; 83880; 80053; 83605; 83735 ×2; 84484; 85025; 85610; 85730; 87635; 71046; 71260; 43239; 43249; G0378 ×4; J1644 ×3; J2001; J2704; Q9967; C1726